=== PATIENT | male | born 1945 | race African-American/Black ===

== ENCOUNTER 2016-04-01 22:07 | Observation (INO) | payer OTHER, BC ==
[~2016-04-01] VITALS: Ht 170.2 cm; Wt 108.3 kg
[~2016-04-01 22:07] MED LIST: ANTIVERT25 MG PO; ASPIR 8181 M1 PO; Aspirin E.C. PO; CORTEF20 M1 PO; CRESTOR40 MG PO; Cortef PO; D-VERT25 MG PO; FORTAMET500 M1 PO; Feosol PO; Glucophage PO; IRON55 MG PO; LEVEMIR FL100 UNITS/ SC; Levothroid,Synthroid PO; MAVIK1 MG PO; NOVOLOG PE100 UNITS/ SC; NOVOLOG100 UNIT/1 SQ; PRILOSEC40 MG PO; PROZAC10 M1 PO; PROzac PO; PriLOSEC PO; SYNTHROID137 MCG PO; VALIUM5 MG PO; VITAMIN D250000 UNIT PO
[2016-04-01] MEDS ORDERED: METFORMIN HCL1000 MG PO (22:20)
[2016-04-01] MEDS ORDERED: PROZAC20 MG PO (22:21)
[2016-04-01] MEDS ORDERED: ATORVASTATIN CA40 MG PO (22:23)
[2016-04-01] MEDS ORDERED: ACTOS15 MG PO (22:23)
[2016-04-01] MEDS ORDERED: DONEPEZIL HCL10 MG PO (22:24)
[2016-04-01] MEDS ORDERED: DETROL LA4 MG PO (22:24)
[2016-04-01] MEDS ORDERED: LISINOPRIL10 MG PO (22:24)
[2016-04-01 22:57] LABS: MCH 25.6 PG (29.0-34.0); MCHC 32.9 G/DL (30.0-36.0); MCV 77.8 FL (86-99); MEAN PLAT.VOLUME 10.7 uM^3 (9.0-12.4); PLATELET COUNT 298 K/uL (156-360); RBC DIS.WIDTH-SD 38.5 % (39-53)
[2016-04-01 23:09] LABS: CHLORIDE 114 mEq/L (99-109); POTASSIUM 4.2 mEq/L (3.7-5.4); SODIUM 138 mEq/L (136-147)
[2016-04-01 23:11] LABS: GLUCOSE 247 mg/dL (70-99)
[2016-04-01 23:13] LABS: ANION GAP 11 MEQ/L (2-14)
[2016-04-01 23:15] LABS: GFR ESTIMATE (CALCULATED) 55 mL/min/
[2016-04-01 23:16] LABS: UREA NITROGEN (BUN) 24 mg/dL (9-23)
[2016-04-01 23:18] LABS: TROP-I INTERPRETATION NEGATIVE; TROPONIN-I < 0.01 ng/mL (0.0-0.30)
[2016-04-02 00:01] LABS: TOTAL BILIRUBIN 0.3 mg/dL (0.0-1.0)
[2016-04-02 00:02] LABS: ALKALINE PHOSPHATASE 98 IU/L (3-129)
[2016-04-02 00:05] LABS: DIRECT BILIRUBIN 0.2 mg/dL (0.0-0.3)
[2016-04-02 00:06] LABS: LIPASE 63 U/L (1.0-51.0)
[2016-04-02 04:29] VITALS: BP 126/58
[2016-04-02 07:04] VITALS: BP 124/76
[2016-04-02 08:25] LABS: FERRITIN 338 NG/ML (22-322)
[2016-04-02 08:26] LABS: ANION GAP 9 MEQ/L (2-14); CHLORIDE 116 MEQ/L (99-109); GFR ESTIMATE (CALCULATED) > 59 mL/min/; GLUCOSE 135 mg/dL (70-99); IRON 41 MCG/DL (35-150); POTASSIUM 4.1 MEQ/L (3.7-5.4); SAMPLE HEMOLYSIS CHECK 0; SAMPLE ICTERIC CHECK 0; SAMPLE LIPEMIA CHECK 0; SODIUM 139 MEQ/L (136-147); UREA NITROGEN (BUN) 22 mg/dL (9-23)
[2016-04-02] MEDS ORDERED: LEVEMIR FL100 UNIT/1 SC (08:43)
[2016-04-02 12:01] LABS: POINT-OF-CARE METER ID UU13113700
[2016-04-02] MEDS ORDERED: SYNTHROID150 MCG PO (12:38)
[2016-04-02] MEDS ORDERED: OMEPRAZOLE40 M1 PO (12:38)
[2016-04-02 14:40] VITALS: BP 127/63
[2016-04-02 20:18] VITALS: BP 111/58
[2016-04-02 23:48] VITALS: BP 109/54
[2016-04-03 04:00] VITALS: BP 100/54
[2016-04-03 07:03] LABS: ALKALINE PHOSPHATASE 77 IU/L (3-129); ANION GAP 6 MEQ/L (2-14); CHLORIDE 115 MEQ/L (99-109); GFR ESTIMATE (CALCULATED) > 59 mL/min/; GLUCOSE 112 mg/dL (70-99); POTASSIUM 4.3 MEQ/L (3.7-5.4); SAMPLE HEMOLYSIS CHECK 0; SAMPLE ICTERIC CHECK 0; SAMPLE LIPEMIA CHECK 0; SODIUM 140 MEQ/L (136-147); TOTAL BILIRUBIN 0.4 MG/DL (0.0-1.0); UREA NITROGEN (BUN) 17 mg/dL (9-23)
[2016-04-03 07:21] LABS: HEMATOCRIT 28.9 % (38.0-50.0); MCH 26.2 PG (29.0-34.0); MCHC 32.9 G/DL (30.0-36.0); MCV 79.8 FL (86-99); MEAN PLAT.VOLUME 10.5 uM^3 (9.0-12.4); PLATELET COUNT 219 K/uL (156-360); RBC DIS.WIDTH-CV 13.8 % (11.8-14.6); RBC DIS.WIDTH-SD 40.1 % (39-53); RED BLOOD COUNT 3.62 M/uL (4.00-5.50)
[2016-04-03 07:22] LABS: WHITE BLOOD COUNT 3.5 K/uL (4.1-10.2)
[2016-04-03 07:30] VITALS: BP 100/53
[2016-04-03 10:49] VITALS: BP 103/54
[2016-04-03 13:34] LABS: ANION GAP 7 MEQ/L (2-14); CHLORIDE 114 MEQ/L (99-109); GFR ESTIMATE (CALCULATED) > 59 mL/min/; GLUCOSE 135 mg/dL (70-99); SAMPLE HEMOLYSIS CHECK 0; SAMPLE ICTERIC CHECK 0; SAMPLE LIPEMIA CHECK 0; SODIUM 140 MEQ/L (136-147); UREA NITROGEN (BUN) 13 mg/dL (9-23)
[2016-04-03 15:56] VITALS: BP 106/62
== END 2016-04-03 17:08 | disposition home or self-care (01) ==
LOC: EME 22:07 → EDOF 04-02 03:21 → 5SOUTH 04-02 03:21 → EDOF 04-02 03:21 → 5WEST 04-02 04:20 → 5SOUTH 04-02 08:33 → 5WEST 04-02 08:33 → 5SOUTH 04-02 08:33
PROVIDERS: Hospitalist; Internal Medicine
DX: K52.9 Noninfective gastroenteritis and colitis, unspecified (principal); E87.2 Acidosis; E11.9 Type 2 diabetes mellitus without complications; N17.9 Acute kidney failure, unspecified; R11.2 Nausea with vomiting, unspecified; K21.9 Gastro-esophageal reflux disease without esophagitis; E03.9 Hypothyroidism, unspecified; E89.3 Postprocedural hypopituitarism; Z79.4 Long term (current) use of insulin; Z88.0 Allergy status to penicillin; Z91.041 Radiographic dye allergy status; Z79.82 Long term (current) use of aspirin
CPT/HCPCS: 71020; 74176; 80048; 80048 91; 80053; 80076; 82728; 82948; 83540; 83630; 83690; 84466; 84484; 85027; 87177; 87493; 92610 GN; 93005; 99281; 99284; G0378; G8978 GP CJ; G8979 GP CH; G8987 GO CI; G8988 GO CH; J1644; J1885; J2405; J7030; S0028

== ENCOUNTER 2016-09-12 07:02 | Emergency (ER) | payer OTHER, BC ==
[~2016-09-12] VITALS: Ht 175.3 cm; Wt 104.0 kg
[~2016-09-12 07:02] MED LIST changes: +ACTOS15 MG PO; +ATORVASTATIN CA40 MG PO; +DETROL LA4 MG PO; +DONEPEZIL HCL10 MG PO; +LEVEMIR FL100 UNIT/1 SC; +LISINOPRIL10 MG PO; +METFORMIN HCL1000 MG PO; +OMEPRAZOLE40 M1 PO; +PROZAC20 MG PO; +SYNTHROID150 MCG PO
[2016-09-12 10:30] VITALS: BP 159/64
== END 2016-09-12 10:37 | disposition home or self-care (01) ==
LOC: EME 07:02
DX: S00.03XA Contusion of scalp, initial encounter (principal); S00.01XA Abrasion of scalp, initial encounter; W01.198A Fall on same level from slipping, tripping and stumbling with subsequent striking against other object, initial encounter; Y92.481 Parking lot as the place of occurrence of the external cause; E11.9 Type 2 diabetes mellitus without complications; I10 Essential (primary) hypertension; F32.9 Major depressive disorder, single episode, unspecified; Z79.899 Other long term (current) drug therapy; Z79.84 Long term (current) use of oral hypoglycemic drugs; Z88.0 Allergy status to penicillin; Z91.041 Radiographic dye allergy status
CPT/HCPCS: 70450; 99281; 99284

== ENCOUNTER 2016-10-03 14:40 | Emergency (ER) | payer OTHER, BC ==
[~2016-10-03] VITALS: Ht 175.3 cm; Wt 104.5 kg
[2016-10-03] MEDS ORDERED: ROXICODONE5 MG PO (16:11)
[2016-10-03 16:27] VITALS: BP 137/77
== END 2016-10-03 17:01 | disposition home or self-care (01) ==
LOC: EME 14:40 → EXP 14:40
DX: S20.211A Contusion of right front wall of thorax, initial encounter (principal); W18.30XA Fall on same level, unspecified, initial encounter; I10 Essential (primary) hypertension; E11.9 Type 2 diabetes mellitus without complications; Z79.84 Long term (current) use of oral hypoglycemic drugs; E03.9 Hypothyroidism, unspecified; E23.0 Hypopituitarism; F32.9 Major depressive disorder, single episode, unspecified; Z96.643 Presence of artificial hip joint, bilateral; Z88.0 Allergy status to penicillin
CPT/HCPCS: 71020; 99281; 99283